=== PATIENT | female | born 1970 | race Caucasian/White ===

== ENCOUNTER 2020-12-25 10:20 | Day surgery (SDC) | payer OTHER ==
[~2020-12-25] VITALS: Ht 162.6 cm; Wt 59.1 kg
[2020-12-25 11:07] VITALS: BP 128/74; PULSE 84; TEMP 98.3
[2020-12-25] MEDS ORDERED: LIPITOR 40MG TA40 MG PO (11:12)
[2020-12-25] MEDS ORDERED: [UNRECOGNIZED DRUG - OTHER] PO (11:13)
[2020-12-25] MEDS ORDERED: [UNRECOGNIZED DRUG - OTHER] PO (11:14)
[2020-12-25] MEDS ORDERED: [UNRECOGNIZED DRUG - OTHER] PO (11:15)
[2020-12-25] MEDS ORDERED: MEGA X PO (11:16)
[2020-12-25] MEDS ORDERED: [UNRECOGNIZED DRUG - OTHER] PO (11:16)
[2020-12-25] MEDS ORDERED: PROBIOTIC FORMU1 CAP PO (11:16)
[2020-12-25 12:50] VITALS: BP 129/72; PULSE 72; PULSE 98
--- NOTE | 2020-12-25 12:50 | NUR ---
TO BAY 8 PER CART FROM PACU. ALERT AND TALKING TO STAFF. AMBULATED TO RECLINER WITH ASSIST. DR BOURGEOIS TALKED WITH PATIENT PRIOR TO LEAVING THE PROCEDURE RM.
[2020-12-25 13:00] VITALS: BP 137/92; PULSE 70
[2020-12-25 13:05] VITALS: BP 126/72; PULSE 68
--- NOTE | 2020-12-25 13:05 | NUR ---
RECEOVED APPLE JUICE AND APPLE SAUCE. SITTING UP AND TEXTING .
[2020-12-25 13:08] VITALS: BP 126/72; PULSE 67
--- NOTE | 2020-12-25 13:25 | NUR ---
DISCHARGED PER WC BY NURSING STAFF TO PRIVATE CAR IN CARE OF .
== END 2020-12-25 13:25 | disposition home or self-care (01) ==
LOC: SDCO 10:20
DX: Z12.11 Encounter for screening for malignant neoplasm of colon (principal); E78.01 Familial hypercholesterolemia; I73.00 Raynaud's syndrome without gangrene; E78.00 Pure hypercholesterolemia, unspecified; Z20.822 Contact with and (suspected) exposure to COVID-19; Z79.899 Other long term (current) drug therapy; Z82.3 Family history of stroke; Z80.42 Family history of malignant neoplasm of prostate; Z80.0 Family history of malignant neoplasm of digestive organs
CPT/HCPCS: J2704; J7030

== ENCOUNTER → 2020-12-29 | Outpatient (CLI) | payer OTHER ==
[~2020-12-29] MED LIST: LIPITOR 40MG TA40 MG PO; MEGA X PO; PROBIOTIC FORMU1 CAP PO; [UNRECOGNIZED DRUG - OTHER] PO; [UNRECOGNIZED DRUG - OTHER] PO; [UNRECOGNIZED DRUG - OTHER] PO; [UNRECOGNIZED DRUG - OTHER] PO
== END ==
LOC: MC.RAD 06:49
DX: Z12.31 Encounter for screening mammogram for malignant neoplasm of breast (principal); Z00.00 Encounter for general adult medical examination without abnormal findings

== ENCOUNTER → 2022-01-22 | Outpatient (CLI) | payer BC | LOC: MC.RAD 06:52 | DX: Z12.31 Encounter for screening mammogram for malignant neoplasm of breast (principal); N63.20 Unspecified lump in the left breast, unspecified quadrant ==

== ENCOUNTER → 2022-01-29 | Outpatient (CLI) | payer BC | LOC: MC.RAD 13:48 | DX: N63.20 Unspecified lump in the left breast, unspecified quadrant (principal) ==

== ENCOUNTER → 2024-03-26 | Outpatient (CLI) | payer BC | LOC: MC.RAD 11:32 | DX: Z12.31 Encounter for screening mammogram for malignant neoplasm of breast (principal) ==